=== PATIENT | male | born 1995 | race African-American/Black ===

== ENCOUNTER 2019-02-24 08:09 | Emergency (ER) | payer OTHER ==
[2019-02-24 08:33] VITALS: BP 145/94; PULSE 60; TEMP 97.9; BMI 23.7
[2019-02-24] MEDS ORDERED: AZITHROMYCIN 500 MG TABLET PO ONE (08:44)
--- NOTE | 2019-02-24 09:01 | PDOC ---
History of Present Illness - General Chief Complaint: Penile Drainage Stated Complaint: GENITLE TINGLING Time Seen by Provider: 02/24/19 08:38 History Source: Patient Exam Limitations: No Limitations Past History - Past Medical History Allergies/Adverse Reactions: Allergies Allergy/AdvReac Type Severity Reaction Status Date / Time No Known Allergies Allergy Verified 02/24/19 08:24 Home Medications: Ambulatory Orders NK [No Known Home Medication] 02/24/19 CVA: No COPD: No CHF: No - Immunization History Immunization Up to Date: Yes - Suicide/Smoking/Psychosocial Hx Smoking History: Never smoked Hx Alcohol Use: No Drug/Substance Use Hx: Yes (MARIJUANA) *Physical Exam - Vital Signs Last Vital Signs Temp Pulse Resp BP Pulse Ox 97.9 F 60 17 145/94 99 02/24/19 08:25 02/24/19 08:25 02/24/19 08:25 02/24/19 08:25 02/24/19 08:25 - Physical Exam General Appearance: No: Apparent Distress Respiratory/Chest: positive: Lungs Clear, Normal Breath Sounds. negative: Respiratory Distress Cardiovascular: positive: Regular Rhythm, Regular Rate, S1, S2. negative: Murmur Gastrointestinal/Abdominal: positive: Normal Bowel Sounds, Soft. negative: Tender, Distended, Guarding, Rebound Male Genitalia: positive: normal genitalia, other (no penile rash noted). negative: discharge Integumentary: positive: Normal Color Neurologic: positive: Alert, Normal Mood/Affect Medical Decision Making - Medical Decision Making 23 y/o M with no sig pmh presents with dysuria x 3-4 days along with noting whitish penile discharge after having a one time intercourse with someone. Denies prior hx of STDs. Denies fever, abd pain, n/v, hematuria, rash. Patient refused HIV testing; only wants GC testing Urine GC test done Treated prophylactically with Ceftriaxone IM and Azithromycin 02/24/19 08:55 *DC/Admit/Observation/Transfer Diagnosis at time of Disposition: Possible exposure to STD - Discharge Dispostion Disposition: HOME Condition at time of disposition: Stable Decision to Admit order: No - Referrals - Patient Instructions Additional Instructions: Thank you for choosing [facility]. It was a pleasure taking care of you. You were treated prophylactically for possible chlamydia and gonorrhea Please refrain from intercourse for 1 week You will be notified regarding results of your testing in 2-3 days. Return to the Emergency Department if your symptoms worsen or persist or have other concerning symptoms. - Post Discharge Activity
[2019-02-24] MEDS ORDERED: AZITHROMYCIN 250 MG TABLET ONE (09:17)
== END 2019-02-24 09:32 | disposition home or self-care (01) ==
LOC: JERFT 08:09
DX: Z11.3 Encounter for screening for infections with a predominantly sexual mode of transmission (principal)
CPT/HCPCS: 36415; 87491; 87591; 99281-25

== ENCOUNTER 2019-05-19 02:01 | Emergency (ER) | payer OTHER ==
[2019-05-19 02:28] VITALS: BP 123/71; PULSE 83; TEMP 98.2; BMI 22.1
--- NOTE | 2019-05-19 02:45 | PDOC ---
*Physical Exam - Vital Signs Last Vital Signs Temp Pulse Resp BP Pulse Ox 98.2 F 83 18 123/71 98 05/19/19 02:24 05/19/19 02:24 05/19/19 02:24 05/19/19 02:24 05/19/19 02:24 Medical Decision Making - Medical Decision Making 05/19/19 02:45 Patient seen by the advanced practice provider under my direct supervision. Ancillary testing reviewed as necessary. I agree with plan as outlined by the advanced practice provider. *DC/Admit/Observation/Transfer Diagnosis at time of Disposition: Insect bite Qualifiers: Encounter type: initial encounter Site of insect bite: lower back Qualified Code(s): S30.860A - Insect bite (nonvenomous) of lower back and pelvis, initial encounter - Discharge Dispostion Disposition: HOME - Prescriptions Prescriptions: Hydrocortisone 1% Cream [Hytone 1% Cream -] 1 applic TP TID #1 tube - Referrals Referrals: Phi Arenas MD [Primary Care Provider] - - Patient Instructions Printed Discharge Instructions: DI for Insect Bites and Stings Additional Instructions: apply hydrocortisone to the area. followup with your doctor as soon as possible. - Post Discharge Activity
--- NOTE | 2019-05-19 03:20 | PDOC ---
History of Present Illness - General Chief Complaint: Rash Stated Complaint: BUG BITE Time Seen by Provider: 05/19/19 02:42 History Source: Patient - History of Present Illness Initial Comments: 05/19/19 03:00 23 year old male c/o finding a caterpillar on [place] the [place] now with itchiness to left buttocks area. denies fever/ chills. pain, erythema, streaking Past History - Past Medical History Allergies/Adverse Reactions: Allergies Allergy/AdvReac Type Severity Reaction Status Date / Time No Known Allergies Allergy Verified 02/24/19 08:24 Home Medications: Ambulatory Orders Hydrocortisone 1% Cream [Hytone 1% Cream -] 1 applic TP TID #1 tube 05/19/19 CVA: No COPD: No CHF: No - Immunization History Immunization Up to Date: Yes - Suicide/Smoking/Psychosocial Hx Smoking History: Unknown if ever smoked Hx Alcohol Use: No Drug/Substance Use Hx: Yes (MARIJUANA) Review of Systems - Review of Systems Able to Perform ROS?: Yes Is the patient limited Welsh proficient: No Integumentary: Yes: Other (insect bite) *Physical Exam - Vital Signs Last Vital Signs Temp Pulse Resp BP Pulse Ox 98.2 F 83 18 123/71 98 05/19/19 02:24 05/19/19 02:24 05/19/19 02:24 05/19/19 02:24 05/19/19 02:24 - Physical Exam General Appearance: Yes: Appropriately Dressed Integumentary: positive: Erythema (left buttocks area with erythema, not warm to touch. ) Neurologic: positive: Fully Oriented, Alert, Normal Mood/Affect Progress Note - Progress Note Progress Note: A: insect bite with local reaction P: hydrocortisone *DC/Admit/Observation/Transfer Diagnosis at time of Disposition: Insect bite Qualifiers: Encounter type: initial encounter Site of insect bite: lower back Qualified Code(s): S30.860A - Insect bite (nonvenomous) of lower back and pelvis, initial encounter - Discharge Dispostion Disposition: HOME - Prescriptions Prescriptions: Hydrocortisone 1% Cream [Hytone 1% Cream -] 1 applic TP TID #1 tube - Referrals Referrals: Phi Arenas MD [Primary Care Provider] - - Patient Instructions Printed Discharge Instructions: DI for Insect Bites and Stings Additional Instructions: apply hydrocortisone to the area. followup with your doctor as soon as possible. - Post Discharge Activity
== END 2019-05-19 03:28 | disposition home or self-care (01) ==
LOC: JER 02:01
DX: S30.860A Insect bite (nonvenomous) of lower back and pelvis, initial encounter (principal); L08.9 Local infection of the skin and subcutaneous tissue, unspecified; W57.XXXA Bitten or stung by nonvenomous insect and other nonvenomous arthropods, initial encounter; Y93.89 Activity, other specified; Y92.830 Public park as the place of occurrence of the external cause; Y99.8 Other external cause status
CPT/HCPCS: 99281-25

== ENCOUNTER 2019-09-21 19:21 | Emergency (ER) | payer OTHER ==
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
[2019-09-21 19:39] VITALS: BP 119/68; PULSE 80; TEMP 98.2; BMI 24.3
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
== END 2019-09-21 20:35 | disposition home or self-care (01) ==
LOC: JERFT 19:21
DX: S39.012A Strain of muscle, fascia and tendon of lower back, initial encounter (principal); V43.62XA Car passenger injured in collision with other type car in traffic accident, initial encounter; Y92.414 Local residential or business street as the place of occurrence of the external cause; Y93.89 Activity, other specified; Y99.8 Other external cause status
CPT/HCPCS: 99281-25

== ENCOUNTER 2021-09-28 22:30 | Emergency (ER) | payer OTHER ==
[2021-09-28 22:41] VITALS: BP 126/51; PULSE 61; TEMP 98.4; BMI 24.9
[2021-09-28] MEDS ORDERED: KETOROLAC TROMETHAMINE 30 MG/1 ML VIAL IM ONE (23:53)
[2021-09-28] MEDS ORDERED: METHOCARBAMOL 500 MG TABLET PO ONE (23:53)
[2021-09-29] MEDS ORDERED: METHOCARBAMOL 500 MG TABLET ONE (00:06)
[2021-09-29] MEDS ORDERED: KETOROLAC TROMETHAMINE 30 MG/1 ML VIAL ONE (00:06)
== END 2021-09-29 00:29 | disposition home or self-care (01) ==
LOC: JER 22:30
PROC: 3E03329 Introduction of Other Anti-infective into Peripheral Vein, Percutaneous Approach (ICD-10-PCS; principal; 2021-09-28)
PROC: 3E0233Z Introduction of Anti-inflammatory into Muscle, Percutaneous Approach (ICD-10-PCS; 2021-09-28)
DX: S43.401A Unspecified sprain of right shoulder joint, initial encounter (principal); R36.9 Urethral discharge, unspecified; X50.3XXA Overexertion from repetitive movements, initial encounter
CPT/HCPCS: 36415; 73030-TC-RT-FY; 87086; 87491; 87591; 99284-25

== ENCOUNTER 2022-12-04 21:13 | Emergency (ER) | payer OTHER ==
[2022-12-04 21:34] VITALS: BMI 23.1
[2022-12-04] MEDS ORDERED: MAG HYDROX/AL HYDROX/SIMETH 30 ML UNIT-DOSE CUP PO ONE (21:37)
[2022-12-04] MEDS ORDERED: FAMOTIDINE 20 MG/50 ML IVPB 20 MG/50 ML MG IVPB ONE ×2 (21:37→21:52)
[2022-12-04] MEDS ORDERED: SUCRALFATE 1 GM TABLET (FP) PO ONE (21:38)
[2022-12-04] MEDS ORDERED: ONDANSETRON 4 MG/2 ML VIAL IVPUSH ONE (21:39)
[2022-12-04] MEDS ORDERED: SODIUM CHLORIDE 500 ML IV STA (21:40)
[2022-12-04] MEDS ORDERED: SUCRALFATE 1 GM TABLET (FP) ONE (21:51)
[2022-12-04] MEDS ORDERED: MAG HYDROX/AL HYDROX/SIMETH 30 ML UNIT-DOSE CUP ONE (21:52)
[2022-12-04] MEDS ORDERED: ONDANSETRON 4 MG/2 ML VIAL ONE (21:52)
[2022-12-04 22:10] LABS: BASO % 0.3 % (0-2.0); EOS % 0.5 % (0-4.5); HEMATOCRIT 45.2 % (35.4-49); HEMOGLOBIN 15.2 GM/dL (11.7-16.9); LYMPH % 9.8 % (8-40); MCH 29.1 pg (25.7-33.7); MCHC 33.7 g/dl (32.0-35.9); MEAN CELL VOLUME 86.4 fl (80-96); MEAN PLT VOLUME 8.5 fl (7.5-11.1); MONO % 4.3 % (3.8-10.2); NEUT % 85.1 % (42.8-82.8); PLATELET COUNT 222 10^3/uL (134-434); RBC 5.23 M/mm3 (4.00-5.60); RDW 14.3 % (11.9-15.9); WHITE BLOOD COUNT 7.5 K/mm3 (4.0-10.0)
[2022-12-04 22:26] LABS: PH,URINE 6.5 (5.0-8.0); URINE APPEARANCE CLEAR; URINE BILIRUBIN NEGATIVE (NEGATIVE); URINE COLOR YELLOW; URINE GLUCOSE (UA) NEGATIVE (NEGATIVE); URINE KETONE 1+ (NEGATIVE); URINE LEUK ESTERASE NEGATIVE (NEGATIVE); URINE NITRITE NEGATIVE (NEGATIVE); URINE PROTEIN NEGATIVE (NEGATIVE)
[2022-12-04 22:32] LABS: CALCIUM 9.6 mg/dL (8.5-10.1)
[2022-12-04 22:33] LABS: ALBUMIN 4.7 g/dl (3.4-5.0); BLOOD UREA NITROGEN 19.5 mg/dL (7-18)
[2022-12-04 22:37] LABS: BILIRUBIN,TOTAL 2.2 mg/dL (0.2-1); TOT PROT 7.8 g/dl (6.4-8.2)
[2022-12-05] MEDS ORDERED: ONDANSETRON *ODT* 4 MG TABLET SL ONE (01:20)
[2022-12-05] MEDS ORDERED: ONDANSETRON *ODT* 4 MG TABLET ONE (01:21)
[2022-12-05 01:23] VITALS: BP 120/60; PULSE 54; RESP 20; TEMP 99.7
== END 2022-12-05 01:53 | disposition home or self-care (01) ==
LOC: JER 21:13
PROC: 3E033GC Introduction of Other Therapeutic Substance into Peripheral Vein, Percutaneous Approach (ICD-10-PCS; principal; 2022-12-04)
DX: K52.9 Noninfective gastroenteritis and colitis, unspecified (principal)
CPT/HCPCS: 36415; 74177-TC; 80053; 81003; 83605; 83690; 85025; 87086; 93005; 93010; 99285-25; Q0162; Q9967

== ENCOUNTER 2024-07-16 11:50 | Emergency (ER) | payer OTHER ==
[2024-07-16 11:57] VITALS: BP 125/69; PULSE 51; RESP 18; TEMP 97.7; BMI 23.1
[2024-07-16] MEDS ORDERED: DIPHTH,PERTUSS(ACELL),TET 0.5 ML DISP.SYRIN IM ONE (12:34)
[2024-07-16] MEDS: DIPHTH,PERTUSS(ACELL),TET 0.5 ML DISP.SYRIN IM ONE (12:37)
[2024-07-16] MEDS ORDERED: IBUPROFEN 600 MG TABLET (FP) PO ONE (12:47)
[2024-07-16] MEDS: IBUPROFEN 600 MG TABLET (FP) PO ONE (12:48)
== END 2024-07-16 13:51 | disposition home or self-care (01) ==
LOC: JERFT 11:50
PROC: 3E0234Z Introduction of Serum, Toxoid and Vaccine into Muscle, Percutaneous Approach (ICD-10-PCS; principal; 2024-07-16)
DX: S21.159A Open bite of unspecified front wall of thorax without penetration into thoracic cavity, initial encounter (principal); W50.3XXA Accidental bite by another person, initial encounter; Z23 Encounter for immunization
CPT/HCPCS: 90715; 99284-25